=== PATIENT | female | born 1970 | race Caucasian/White ===

== ENCOUNTER 2022-01-04 13:10 | Day surgery (SDC) | payer OTHER ==
[~2022-01-04] VITALS: Ht 162.6 cm; Wt 76.5 kg
--- NOTE | ~2022-01-04 | OR ---
[facility] [address], [place] [address] Draft DATE OF OPERATION: 01/04/2022 SURGEON: Maura Gil MD PREOPERATIVE DIAGNOSIS: Clinical symptoms of gastroesophageal reflux; prior history of gastroparesis (not confirmed). POSTOPERATIVE DIAGNOSIS: Hiatal hernia with mild chronic distal esophagitis. PROCEDURE: Esophagogastroduodenoscopy with biopsy. ANESTHESIA: Intravenous sedation, fentanyl 100 mcg, Versed 6 mg. INDICATION: This 51-year-old white woman has a long-standing GI history, said to have Crohn's colitis in the past. She additionally has had reflux-type symptoms over time. She was referred by ROXANA Ariza in [place] for consideration of upper endoscopy on the basis of prior evaluation and clinical diagnosis of possible gastroparesis. She has not had formal testing for that, however. She is considered to have had Crohn's colitis for quite some time. A CT scan in 2019 had shown circumferential bowel wall thickening in the left colon through the rectum as well as ascending colon. She currently has abdominal pain complaints in the epigastric area, particularly worse when lifting. She denies any dysphagia. She has had omeprazole on an episodic basis and sometimes takes Tums. She is thought to have a history of Crawford's epithelium, though that is not confirmed. She has no odynophagia. She is admitted at this time to undergo upper endoscopy to better characterize her current symptoms, understands the risks of bleeding, infection, and perforation. The patient was slightly resistant to sedation based on polysubstance use including alcohol, marijuana and psychotropic medications including bupropion, fluoxetine and trazodone. Nevertheless, she tolerated procedure Well. FINDINGS: Included mild chronic distal esophagitis without evidence of Crawford's epithelium and hiatal hernia. The stomach and duodenum were reasonably normal. CLOtest was negative 10 minutes post procedure. PATIENT NAME: CARLOS QUIROS OPERATIVE REPORT DATE OF : 74 REPORT #: [id number] PHYSICIAN: MAURA GIL MD PCP: AMRIK BLANTON PA-C REPORT IS CONFIDENTIAL AND NOT TO BE RELEASED WITHOUT AUTHORIZATION [facility] [address], [place] [address] Draft DESCRIPTION OF PROCEDURE: The patient was brought to the endoscopy suite and placed in lateral decubitus position after undergoing lidocaine hypopharyngeal anesthesia. She was given intravenous sedation to the point of slurred speech and nystagmus. A bite block was placed. An Olympus video upper endoscope was passed in the hypopharynx. The vocal cords appeared normal. Scope was advanced to the esophagus. The proximal portion appeared reasonably normal. There were several small thin whitish plaques in the mid esophagus. The scope was advanced to the distal esophagus. There was no evidence of stricture, neoplasm, or Crawford's epithelium. There were no varices. The scope was advanced to the stomach, which was insufflated with air. There was no sign of bilious fluid or retained food. Rugal folds were normal. The antrum was normal as was the pylorus. The scope was passed through into the duodenum. The duodenum was normal. Biopsies were taken of the second bulbar portion. The scope was withdrawn and biopsy was taken of the antrum for both KENZIE and pathologic testing. Retroflexed view was undertaken and withdrawal of scope allowed for easy withdrawal of scope into the esophagus proper consistent with a bit very poor flap valve. The scope was straightened, withdrawn, and biopsies taken of the esophageal mucosa, which showed chronic inflammation with no sign of neoplasm nor Crawford's epithelium. Careful withdrawal of scope allowed for biopsy of the mid esophagus. The scope was removed and the patient was taken to the recovery room in good condition. CONCLUDING DIAGNOSIS: Hiatal hernia and chronic esophagitis. PLAN: We will initiate therapy plan of Prilosec 20 mg on a daily basis. The patient will be reassured that the theoretic risks associated with PPIs are actually less concerning than previously noted based on recent information and data. She will see us back in 6 to 8 weeks and we will review her progress. MD JESSICA Taylor/EMILY /[id number] cc: ROXANA Ariza PATIENT NAME: CARLOS QUIROS OPERATIVE REPORT DATE OF : 74 REPORT #: [id number] PHYSICIAN: MAURA GIL MD PCP: AMRIK BLANTON PA-C REPORT IS CONFIDENTIAL AND NOT TO BE RELEASED WITHOUT AUTHORIZATION [address] [address] Draft Copies: ~ PATIENT NAME: CARLOS QUIROS OPERATIVE REPORT DATE OF : 74 REPORT #: [id number] PHYSICIAN: MAURA GIL MD PCP: AMRIK BLANTON PA-C REPORT IS CONFIDENTIAL AND NOT TO BE RELEASED WITHOUT AUTHORIZATION
[~2022-01-04 13:10] MED LIST: ACYCLOVIR800 MG PO; BUSPIRONE HCL15 MG PO; COLESTID1 GM PO; CYMBALTA30 MG PO; LEVOTHYROXINE88 MC1 PO; METHYLPREDNISOLO4 M1 PO; TRAZODONE HCL100 MG PO; VALIUM2 MG PO; ZITHROMAX250 MG PO
--- NOTE | 2022-01-04 16:25 | NUR ---
01/04/22 1629 Sandra Maynard 1622-PT TO PACU IN LL POSITION. AWAKE AND ALERT. DENIES PAIN NAUSEA AND DIZZINESS. BREATHING EASY AND UNLABORED. SPO2 >95% ON ROOM AIR. PT EDUCATED ABOUT THE PLAN OF CARE AND DC CRITERION.
--- NOTE | 2022-01-08 12:05 | PATH ---
[facility] [address], [place] [address] Signed SPECIMEN(S): A DUODENAL BIOPSY SPECIMEN(S): B ANTRUM/PYLORUS BIOPSY SPECIMEN(S): C LOW ESOPHAGEAL BIOPSY SPECIMEN(S): D MID ESOPHAGEAL BIOPSY SPECIMEN SOURCE: A. DUODENAL BIOPSY B. ANTRUM/PYLORUS BIOPSY C. LOW ESOPHAGEAL BIOPSY D. MID ESOPHAGEAL BIOPSY CLINICAL HISTORY: Esophagogastroduodenoscopy. GERD with esophagitis. Postop: Hiatal hernia, mild distal esophagitis. FINAL PATHOLOGIC DIAGNOSIS: A. Duodenum, biopsy: - Duodenal mucosa with focal prominent Radha's glands and reactive changes. - Negative for increased intraepithelial lymphocytes or villous blunting. - Negative for dysplasia or malignancy. B. Stomach, Antrum/pylorus, biopsy: - Antral mucosa with chronic, inactive gastritis. - Negative for Helicobacter organisms on HE stain. - Negative for dysplasia or malignancy. C. Esophagus, lower, biopsy: - Squamous mucosa with no histopathologic abnormality. - Negative for intestinal metaplasia, dysplasia, or malignancy. D. Esophagus, mid, biopsy: - Squamous mucosa with mild reactive changes. - Negative for increased intraepithelial eosinophils. - Negative for intestinal metaplasia, dysplasia, or malignancy. NAL:cml:C2NR MICROSCOPIC EXAMINATION: Histologic sections of all submitted blocks are examined by light microscopy. These findings, together with the gross examination, support the pathologic diagnosis. GROSS DESCRIPTION: Four specimens are received in four containers labeled with "MM." A. The specimen, labeled "MM, 1," and designated on the requisition "duodenum PATIENT NAME: CARLOS QUIROS PATHOLOGY DATE OF : 74 REPORT #: [id number] PHYSICIAN: FRANTZ BARAJAS PCP: AMRIK BLANTON PA-C REPORT IS CONFIDENTIAL AND NOT TO BE RELEASED WITHOUT AUTHORIZATION [facility] [address], [place] [address] Signed biopsy," is received in formalin and consists of two fragments of pink-conklin tissue (0.3 cm in greatest dimension). The specimen is submitted entirely in cassette (A1). B. The specimen, labeled "MM, 2," and designated on the requisition "antrum/pylorus biopsy," is received in formalin and consists of two fragments of pink-conklin tissue (0.3 cm in greatest dimension). The specimen is submitted entirely in cassette (B1). C. The specimen, labeled "MM, 3," and designated on the requisition "lower esophagus biopsy," is received in formalin and consists of two fragments of white-conklin tissue (0.3 cm in greatest dimension). The specimen is submitted entirely in cassette (C1). D. The specimen, labeled "MM, 4," and designated on the requisition "mid esophagus biopsy," is received in formalin and consists of two fragments of white-conklin tissue (0.3-0.4 cm in greatest dimension). The specimen is submitted entirely in cassette (D1). AC (under the direct supervision of a pathologist) The Gross Description was prepared using a voice recognition system. The report was reviewed for accuracy; however, sound-alike word errors, addition and/or deletions may occur. If there is any question about this report, please contact Client Services. PERFORMING LABORATORY: The technical component was performed by [employer], [address] [place] [id number] (Supervisor Production Department: Annie Gooden MD; CLIA# [id number]). [facility] [address] [address] (CLIA# [id number]). Diagnostician: Brenda Eng MD Pathologist Electronically Signed 01/08/2022 Copies: ~ PATIENT NAME: CARLOS QUIROS PATHOLOGY DATE OF : 74 REPORT #: [id number] PHYSICIAN: FRANTZ PATHOLOGY PCP: AMRIK BLANTON PA-C REPORT IS CONFIDENTIAL AND NOT TO BE RELEASED WITHOUT AUTHORIZATION
== END 2022-01-04 16:40 | disposition home or self-care (01) ==
LOC: OPS 13:10 → DS 13:10 → OPS 14:00
PROVIDERS: ATTEND Surgery
PROC: 0DB68ZZ Excision of Stomach, Via Natural or Artificial Opening Endoscopic (ICD-10-PCS; principal; 2022-01-04 14:00)
DX: K21.00 Gastro-esophageal reflux disease with esophagitis, without bleeding (principal); K44.9 Diaphragmatic hernia without obstruction or gangrene; K29.50 Unspecified chronic gastritis without bleeding; E03.9 Hypothyroidism, unspecified; Z90.49 Acquired absence of other specified parts of digestive tract
CPT/HCPCS: 84703; 99153; G0500; J2250; J3010; J7121